=== PATIENT | female | born 1935 | race Caucasian/White ===

== ENCOUNTER 2016-08-31 03:35 | Inpatient (IN) | payer OTHER ==
[~2016-08-31] VITALS: Ht 162.6 cm; Wt 86.1 kg
[2016-08-31] VITALS (46 sets, daily range): BP systolic 76–149; BP diastolic 36–98
[~2016-08-31 03:35] MED LIST: ETOMIDATE (2MG/ML) 20ML VIAL IV ONE; SUCCINYLCHOLINE CHLORIDE 20 MG/ML 10ML VIAL IV ONE
[2016-08-31 03:42] LABS: Base Excess -13.3 mmol/L (-2.0-2.0); Blood 02Sat 97.6 % (96-100); Blood COHb 0.1 % (0.5-1.5); Blood MetHb 0.2 % (0.0-1.5); HHb 2.4 % (0.0-5.0); MODE MASK - NRB; O2Hb 97.3 % (94.0-97.0); PCO2 26.9 mmHg (35.0-45.0); PCO2(T) 26.9 mmHg (35.0-45.0); PO2 136.1 mmHg (80.0-100.0); PO2(T) 136.1 mmHg (80.0-100.0); Sample Type Arterial; pH 7.267 (7.350-7.450)
[2016-08-31] MEDS ORDERED: SUCCINYLCHOLINE CHLORIDE 20 MG/ML 10ML VIAL IV ONE (03:45)
[2016-08-31] MEDS ORDERED: ETOMIDATE (2MG/ML) 20ML VIAL IV ONE (03:45)
[2016-08-31 03:50] LABS: Basophils # (auto) 0.1 uL; Basophils % (auto) 0.4 % (0.0-2.0); DEFINITIVE VIEW TRANSMISSION; Eosinophils # (auto) 0.3 uL; Hematocrit 39.4 % (36.0-46.0); Hemoglobin 13.1 g/dL (12.2-16.2); Lymphocytes # (auto) 6.8 uL; Lymphocytes % (auto) 39.7 % (10.0-50.0); Mean Corpuscular Hemoglobin 29.3 pg (28.0-32.0); Mean Corpuscular Hgb Conc. 33.3 g/dL (32.0-36.0); Mean Corpuscular Volume 87.8 fL (80.0-100.0); Mean Platelet Volume 10.1 fL (7.4-10.4); Monocytes # (auto) 1.6 uL; Monocytes % (auto) 9.5 % (0.0-12.0); Neutrophils # (auto) 8.3 uL; Neutrophils % (auto) 48.4 % (37.0-80.0); Platelet Count (auto) 215 10^3/uL (140-450); Red Cell Distribution Width 13.9 % (11.6-16.0); White Blood Cell 17.2 10^3/uL (4.4-10.8)
[2016-08-31 04:05] LABS: INR 1.05 (0.9-1.15); Partial Thromboplastin Time 30.1 sec (22.64-33.71); Prothrombin Time 11.4 sec (9.37-12.3)
[2016-08-31 04:11] LABS: Anion Gap 18 (5-15); Aspartate Aminotransferase 20 U/L (15-37); BUN/Creatinine Ratio 19.9; Blood Urea Nitrogen 31 mg/dL (7-18); Calcium 8.1 mg/dL (8.5-10.1); Carbon Dioxide 17 mmol/L (21-32); Chloride 108 mmol/L (98-107); GFR African American 41 mL/min; GFR Non-African American 34 mL/min; Glucose 322 mg/dL (74-106); Potassium 3.4 mmol/L (3.5-5.1); Sodium 143 mmol/L (136-145)
[2016-08-31] MEDS ORDERED: InsuLIN REG 1unit/0.01ml Soln (100units/ml) ONE (04:15)
[2016-08-31] MEDS ORDERED: MIDAZOLAM DRIP 100 mg/100mL NS 100 ML IV ONE (04:15)
[2016-08-31 04:16] LABS: Alkaline Phosphatase 130 U/L (45-117); Bilirubin, Total 0.4 mg/dL (0.2-1.0)
[2016-08-31] MEDS ORDERED: cefTRIAXone 1GM/50ML D5W 50 ML IV ONE ×2 (04:30→10:15)
[2016-08-31] MEDS ORDERED: InsuLIN REG 1unit/0.01ml Soln (100units/ml) IV ONE (04:30)
[2016-08-31] MEDS ORDERED: SODIUM CHLORIDE 0.9% 1,000 ML IV ONE ×3 (04:30→09:15)
[2016-08-31] MEDS ORDERED: DOPamine 1600MCG/ML 250 ML IV ONE (04:45)
[2016-08-31] MEDS ORDERED: EPINEPHrine HCL 1 MG/10 ML SYRG ONE (05:03)
[2016-08-31] MEDS ORDERED: NOREPINEPHRINE BITARTRATE 250 ML IV ONE (05:24)
[2016-08-31] MEDS: NOREPINEPHRINE BITARTRATE 250 ML IV SCH ×2 (05:30→14:00)
[2016-08-31 05:39] LABS: Urine Bilirubin Negative (Negative); Urine Ketone Negative (Negative); Urine Nitrite Negative (Negative); Urine RBC 46 /hpf (0 - 4); Urine Squamous Epithelial Cell FEW /hpf (<5); Urine Urobilinogen Normal (Negative); Urine WBC Clumps PRESENT /hpf (None Seen); Urine pH 5.5 (5.0-8.0)
[2016-08-31 05:54] LABS: Urine Blood 2+ /uL (Negative); Urine Color Yellow (Yellow); Urine Glucose 1+ mg/dL (Normal)
[2016-08-31] MEDS: MIDAZOLAM DRIP 100 mg/100mL NS 100 ML IV SCH ×2 (06:19→07:15)
[2016-08-31 06:21] LABS: Base Excess -19.6 mmol/L (-2.0-2.0); Blood 02Sat 98.9 % (96-100); Blood COHb 0.3 % (0.5-1.5); Blood MetHb 0.4 % (0.0-1.5); HHb 1.1 % (0.0-5.0); MODE VENT - A/C; O2Hb 98.2 % (94.0-97.0); PCO2 36.5 mmHg (35.0-45.0); PCO2(T) 36.5 mmHg (35.0-45.0); PO2 305.7 mmHg (80.0-100.0); PO2(T) 305.7 mmHg (80.0-100.0); Sample Type Arterial; pH 7.054 (7.350-7.450)
[2016-08-31] MEDS ORDERED: SODIUM BICARBONATE 8.4 % INJ 50ML VIAL IV ONE (06:30)
[2016-08-31 08:20] LABS: Lactic Acid w/Reflex 10.8 mmol/L (0.4-2.0)
[2016-08-31 08:22] LABS: REFLEX LACTIC ACID YES OR NO YES
[2016-08-31] MEDS ORDERED: FUROSEMIDE 20 MG/2 ML VIAL IV ONE (09:15)
[2016-08-31] MEDS: SODIUM CHLORIDE 0.9% 1,000 ML IV SCH ×2 (10:03→20:03)
[2016-08-31] MEDS ORDERED: NITROGLYCERIN 0.4 MG SL TAB SL PRN (10:15)
[2016-08-31] MEDS ORDERED: DEXTROSE (50%) 50ML SYRG IV PRN (10:15)
[2016-08-31] MEDS ORDERED: MORPHINE SULF INJ 2 MG/ML SYRINGE 1ML IV PRN ×2 (10:15)
[2016-08-31] MEDS ORDERED: LORazepam 2MG/ML-1ML VIAL IV PRN (10:15)
[2016-08-31] MEDS ORDERED: PROMETHAZINE HCL 25 MG/ML 1ML IV PRN (10:15)
[2016-08-31] MEDS ORDERED: ALBUTEROL SULF 2.5 MG/0.5ML(0.5%) NEB SOLN NEB PRN (10:15)
[2016-08-31] MEDS: PANTOPRAZOLE SODIUM 40 MG/10 ML VIAL IV SCH (10:30)
[2016-08-31] MEDS: ASPirin 81 mg TAB NG SCH (10:30)
[2016-08-31] MEDS ORDERED: ENOXAPARIN SOD 30 MG/0.3 ML SYRINGE SC SCH (10:30)
[2016-08-31] MEDS: METOPROLOL TARTRATE 25 MG TAB NG SCH ×2 (10:30→21:01)
[2016-08-31] MEDS: NITROGLYCERIN 0.2MG/HR TOPICAL PATCH TD SCH (10:30)
[2016-08-31] MEDS: CLINDAMYCIN 600MG IV 50 ML IV SCH ×2 (11:16→18:55)
[2016-08-31] MEDS: IPRATROPIUM BROM 0.5 MG/2.5ML INH SOL NEB SCH ×2 (11:50→18:00)
[2016-08-31] MEDS: ALBUTEROL SULF 2.5 MG/0.5ML(0.5%) NEB SOLN NEB SCH ×2 (11:50→18:00)
[2016-08-31] MEDS: ACCU-CHEK COMFORT CURVE STRIP VI SCH ×2 (12:24→18:16)
[2016-08-31] MEDS: InsuLIN REG 1unit/0.01ml Soln (100units/ml) SC SCH ×2 (12:25→18:28)
[2016-08-31 14:42] LABS: Allen Test Yes; Base Excess -7.9 mmol/L (-2.0-2.0); Blood 02Sat 97.7 % (96-100); Blood COHb 0.6 % (0.5-1.5); Blood MetHb 0.2 % (0.0-1.5); HHb 2.3 % (0.0-5.0); MODE VENT - A/C; O2Hb 96.9 % (94.0-97.0); PO2 109.1 mmHg (80.0-100.0); PO2(T) 109.1 mmHg (80.0-100.0); Sample Type Arterial; pH 7.397 (7.350-7.450)
[2016-08-31] MEDS ORDERED: HEPARIN SODIUM (PORCINE) 5000 UNITS/ML 1ML VIAL IV ONE (15:15)
[2016-08-31 15:58] LABS: Hemoglobin 14.4 g/dL (12.2-16.2); Mean Corpuscular Hemoglobin 28.9 pg (28.0-32.0); Mean Corpuscular Hgb Conc. 33.4 g/dL (32.0-36.0); Mean Corpuscular Volume 86.6 fL (80.0-100.0); Mean Platelet Volume 9.4 fL (7.4-10.4); Platelet Count (auto) 201 10^3/uL (140-450); Red Cell Distribution Width 13.9 % (11.6-16.0); SUSPECT VIEW TRANSMISSION; White Blood Cell 23.1 10^3/uL (4.4-10.8)
[2016-08-31 16:08] LABS: Myelocytes % 0; Promyelocytes % 0; Reactive Lymphocytes 0
[2016-08-31 16:10] LABS: Partial Thromboplastin Time 38.3 sec (22.64-33.71)
[2016-08-31 16:25] LABS: INR 1.45 (0.9-1.15); Prothrombin Time 15.9 sec (9.37-12.3)
[2016-08-31 16:36] LABS: Metamyelocytes % 1
[2016-08-31 16:38] LABS: Giant Platelets Few; Large Platelets FEW; Platelet Estimate Adequa
[2016-08-31] MEDS: POTASSIUM CHL 20MEQ/100ML 100 ML IV SCH ×2 (17:51→20:07)
[2016-08-31] MEDS: HEPARIN DRIP/D5W 100UNITS/ML 250 ML IV SCH (18:25)
[2016-08-31] MEDS ORDERED: AMIODARONE HCL 900 MG IV ONE (22:05)
[2016-08-31] MEDS ORDERED: AMIODARONE HCL (50 MG/ ML) 3 ML VIAL IV ONE (22:05)
[2016-08-31] MEDS ORDERED: AMIODARONE HCL 900 MG in DEXTROSE 500 ML IV SCH (22:14)
[2016-08-31] MEDS ORDERED: AMIODARONE HCL 150 MG in D5W 5% 100 ML IV ONE (22:15)
[2016-09-01] VITALS (71 sets, daily range): BP systolic 89–162; BP diastolic 25–97
[2016-09-01] MEDS: ACCU-CHEK COMFORT CURVE STRIP VI SCH ×3 (00:06→11:52)
[2016-09-01] MEDS: ALBUTEROL SULF 2.5 MG/0.5ML(0.5%) NEB SOLN NEB SCH ×3 (00:08→12:01)
[2016-09-01] MEDS: IPRATROPIUM BROM 0.5 MG/2.5ML INH SOL NEB SCH ×3 (00:08→12:01)
[2016-09-01] MEDS: InsuLIN REG 1unit/0.01ml Soln (100units/ml) SC SCH ×3 (00:09→11:52)
[2016-09-01] MEDS: NOREPINEPHRINE BITARTRATE 250 ML IV SCH ×2 (01:56→15:09)
[2016-09-01] MEDS: CLINDAMYCIN 600MG IV 50 ML IV SCH ×2 (03:10→11:00)
[2016-09-01] MEDS: MIDAZOLAM DRIP 100 mg/100mL NS 100 ML IV SCH ×2 (03:31→13:30)
[2016-09-01] MEDS: AMIODARONE HCL 900 MG in DEXTROSE 500 ML IV SCH ×2 (05:00→15:26)
[2016-09-01] MEDS: SODIUM CHLORIDE 0.9% 1,000 ML IV SCH ×2 (06:20→15:27)
[2016-09-01 07:00] LABS: Basophils # (auto) 0 uL; Basophils % (auto) 0.2 % (0.0-2.0); Eosinophils # (auto) 0 uL; Hematocrit 37.9 % (36.0-46.0); Hemoglobin 12.8 g/dL (12.2-16.2); Lymphocytes # (auto) 1.5 uL; Lymphocytes % (auto) 8.4 % (10.0-50.0); Mean Corpuscular Hemoglobin 28.8 pg (28.0-32.0); Mean Corpuscular Hgb Conc. 33.7 g/dL (32.0-36.0); Mean Corpuscular Volume 85.6 fL (80.0-100.0); Monocytes % (auto) 5.8 % (0.0-12.0); Neutrophils # (auto) 14.9 uL; Neutrophils % (auto) 85.6 % (37.0-80.0); Platelet Count (auto) 170 10^3/uL (140-450); Red Cell Distribution Width 14.7 % (11.6-16.0); White Blood Cell 17.5 10^3/uL (4.4-10.8)
[2016-09-01 07:13] LABS: INR 1.41 (0.9-1.15); Prothrombin Time 15.4 sec (9.37-12.3)
[2016-09-01 07:18] LABS: BUN/Creatinine Ratio 16.7; Calcium 8.4 mg/dL (8.5-10.1)
[2016-09-01 07:26] LABS: Allen Test Modified; Base Excess -5.6 mmol/L (-2.0-2.0); Blood 02Sat 97.7 % (96-100); Blood COHb 0.3 % (0.5-1.5); Blood MetHb 0.3 % (0.0-1.5); HCO3 17.8 mmol/L (22-26.0); HHb 2.3 % (0.0-5.0); MODE VENT - A/C; O2Hb 97.1 % (94.0-97.0); PCO2(T) 28.5 mmHg (35.0-45.0); PO2(T) 102.6 mmHg (80.0-100.0); Sample Type Arterial; pH 7.406 (7.350-7.450)
[2016-09-01 07:33] LABS: Bilirubin, Total 0.6 mg/dL (0.2-1.0); Total Protein 6.3 g/dL (6.4-8.2)
[2016-09-01] MEDS ORDERED: cefTRIAXone 1GM/50ML D5W 50 ML IV SCH (09:00)
[2016-09-01] MEDS: ASPirin 81 mg TAB NG SCH (09:55)
[2016-09-01] MEDS: PANTOPRAZOLE SODIUM 40 MG/10 ML VIAL IV SCH (09:55)
[2016-09-01] MEDS: NITROGLYCERIN 0.2MG/HR TOPICAL PATCH TD SCH ×2 (09:56→10:00)
[2016-09-01] MEDS: METOPROLOL TARTRATE 25 MG TAB NG SCH (09:56)
[2016-09-01 12:34] LABS: Partial Thromboplastin Time 49.5 sec (22.64-33.71)
[2016-09-01 12:38] LABS: INR 1.36 (0.9-1.15); Prothrombin Time 14.9 sec (9.37-12.3)
[2016-09-01 12:44] LABS: Lactic Acid w/Reflex 3.9 mmol/L (0.4-2.0)
[2016-09-01 12:45] LABS: REFLEX LACTIC ACID YES OR NO NO
[2016-09-01] MEDS ORDERED: LIDOCAINE 1% HCL (LOCAL ANESTH.) INJ 20ML MDV ID ONE (14:00)
[2016-09-01] MEDS: HEPARIN DRIP/D5W 100UNITS/ML 250 ML IV SCH (15:09)
[2016-09-01] MEDS ORDERED: SODIUM CHLOR 0.9% PF (SALINE LOCK) 10ML VIAL IV SCH (22:00)
== END 2016-09-01 16:15 | disposition short-term general hospital (02) | DRG 871 ==
LOC: ER 03:42 → TELE 03:43 → ICU WEST 13:18
PROVIDERS: ADMIT Internal Medicine; ATTEND Family Medicine
PROC: 5A12012 Performance of Cardiac Output, Single, Manual (ICD-10-PCS; principal; 2016-08-31)
PROC: 5A1945Z Respiratory Ventilation, 24-96 Consecutive Hours (ICD-10-PCS; 2016-08-31)
PROC: 0BH17EZ Insertion of Endotracheal Airway into Trachea, Via Natural or Artificial Opening (ICD-10-PCS; 2016-08-31)
PROC: 02HV33Z Insertion of Infusion Device into Superior Vena Cava, Percutaneous Approach (ICD-10-PCS; 2016-09-01)
DX: A41.9 Sepsis, unspecified organism (principal); E43 Unspecified severe protein-calorie malnutrition; G93.41 Metabolic encephalopathy; I46.9 Cardiac arrest, cause unspecified; I49.01 Ventricular fibrillation; J69.0 Pneumonitis due to inhalation of food and vomit; J96.01 Acute respiratory failure with hypoxia; R65.21 Severe sepsis with septic shock; I48.1 Persistent atrial fibrillation; I69.354 Hemiplegia and hemiparesis following cerebral infarction affecting left non-dominant side; N13.30 Unspecified hydronephrosis; N39.0 Urinary tract infection, site not specified; N17.9 Acute kidney failure, unspecified; E11.21 Type 2 diabetes mellitus with diabetic nephropathy; E11.22 Type 2 diabetes mellitus with diabetic chronic kidney disease; E11.65 Type 2 diabetes mellitus with hyperglycemia; E86.0 Dehydration; E87.6 Hypokalemia; H91.92 Unspecified hearing loss, left ear; H54.42 Blindness, left eye, normal vision right eye; I50.9 Heart failure, unspecified; N18.3 Chronic kidney disease, stage 3 (moderate); I69.398 Other sequelae of cerebral infarction; Z80.41 Family history of malignant neoplasm of ovary; Z83.3 Family history of diabetes mellitus; Z68.32 Body mass index [BMI] 32.0-32.9, adult
CPT/HCPCS: 31500; 36415; 36569; 36600; 51702; 70450; 71010; 76705; 80053; 80320; 81001; 82150; 82550; 82805; 82962; 83036; 83605; 83690; 83735; 84484; 85007; 85025; 85027; 85610; 85652; 85730; 86141; 87040; 87070; 87081; 87086; 87205; 87493; 92950; 93005; 93306; 93970; 94002; 94003; 94640; 96365; 96372; 96375; 99291; C9113; J0330; J0696; J1815; J3480; J3490; J7060